=== PATIENT | male | born 1970 | race Caucasian/White ===

== ENCOUNTER 2022-03-19 21:25 | Inpatient (IN) | payer MEDICARE, MEDICAID ==
[~2022-03-19] VITALS: Ht 162.6 cm; Wt 57.6 kg
[~2022-03-19 21:25] MED LIST: ALBU18HF2 IH; FERR325T6 PO; MULT-1116 MT; PANT40TA51 MT
[2022-03-19] MEDS ORDERED: IPRATROPIUM BROMIDE (0.02%) 0.5MG/2.5ML NEB HHN STA (23:40)
[2022-03-19] MEDS ORDERED: ONDANSETRON HCL 4MG/2ML INJ IV STA (23:40)
[2022-03-19] MEDS ORDERED: MORPHINE SULFATE 4 MG/ML CPJ (NOT FOR IM USE) IV STA (23:40)
[2022-03-19] MEDS ORDERED: ALBUTEROL (0.083%) 2.5MG/3ML NEB HHN STA (23:40)
[2022-03-19] MEDS ORDERED: PIPERACILLIN/TAZ 3.375G PREMIX 50 ML IV ONE (23:45)
[2022-03-19] MEDS ORDERED: VANCOMYCIN 1G PREMIX 200 ML IV ONE (23:45)
[2022-03-19] MEDS ORDERED: SODIUM CHLORIDE 0.9% 1000ML BAG (SEPSIS BOLUS) IV ONE (23:45)
[2022-03-20] VITALS (15 sets, daily range): BP systolic 77–150; BP diastolic 39–91
[2022-03-20 00:38] LABS: BG BASE EXCESS 2.8 mmol/L (-2.0-2.0); BG CARBOXYHEMOGLOBIN 1.1 % (0.5-1.5); BG DEOXYHEMOGLOBIN 6.4 % (0.0-5.0); BG FRACTION INSPIRED OXYGEN 44; BG HCO3 ACT 27.9 mmol/L (22.0-26.0); BG METHEMOGLOBIN 0.1 % (0.0-1.5); BG OXYGEN SATURATION 93.5 % (92.0-98.5); BG OXYHEMOGLOBIN 92.4 % (94.0-97.0); BG PCO2 45.1 mmHg (35.0-45.0); BG PH 7.409 (7.350-7.450); BG PO2 72.3 mmHg (75.0-100.0); BG SAMPLE SITE LEFT BRACHIAL; BG TOTAL HEMOGLOBIN 9.5 g/dL (12.0-18.0); BG VENT MODE NASAL CANNULA
[2022-03-20 01:51] LABS: HEMATOCRIT. 27.4 % (42.0-52.0); HEMOGLOBIN. 8.7 g/dL (14.0-18.0); MEAN CORPUSCULAR HEMOGLOBIN 23.7 pg (28.0-32.0); MEAN CORPUSCULAR VOLUME 74.5 fL (80.0-94.0); MEAN PLATELET VOLUME 7.6 fl (7.4-10.4); PLATELET 586 x1000/uL (130-400); RED BLOOD CELL COUNT 3.68 mill/uL (4.7-6.1); RED CELL DISTRIBUTION WIDTH 24.5 % (11.6-14.6)
[2022-03-20 02:04] LABS: CHLORIDE 103 mEq/L (98-107)
[2022-03-20] MEDS ORDERED: NOREPINEPHRINE 8MG/250ML PMX 250 ML IV STA (02:39)
[2022-03-20] MEDS ORDERED: VANCOMYCIN 1G PREMIX 200 ML IV NR (03:00)
[2022-03-20] MEDS ORDERED: SODIUM CHLORIDE 0.9% 1000ML BAG (SEPSIS BOLUS) IV NR (03:00)
[2022-03-20] MEDS ORDERED: IPRATROPIUM BROMIDE (0.02%) 0.5MG/2.5ML NEB HHN NR (03:00)
[2022-03-20] MEDS ORDERED: ONDANSETRON HCL 4MG/2ML INJ IV NR (03:00)
[2022-03-20] MEDS ORDERED: PIPERACILLIN/TAZ 3.375G PREMIX 50 ML IV NR (03:00)
[2022-03-20] MEDS ORDERED: ALBUTEROL (0.083%) 2.5MG/3ML NEB HHN NR (03:00)
[2022-03-20] MEDS ORDERED: MORPHINE SULFATE 4 MG/ML CPJ (NOT FOR IM USE) IV NR (03:00)
[2022-03-20] MEDS ORDERED: NOREPINEPHRINE 8 MG in DEXTROSE 5% WATER 250 ML IV NR (03:00)
[2022-03-20 03:18] LABS: PLATELET ESTIMATE INCREASED
[2022-03-20] MEDS ORDERED: IOHEXOL-350 100 ML BOTTLE ONE (07:11)
[2022-03-20] MEDS ORDERED: IPRATROPIUM BROMIDE (0.02%) 0.5MG/2.5ML NEB HHN PRN (07:45)
[2022-03-20] MEDS ORDERED: IPRATROPIUM BROMIDE (0.02%) 0.5MG/2.5ML NEB HHN SCH (07:45)
[2022-03-20] MEDS ORDERED: POTASSIUM CHLORIDE 20MEQ TABLET SR PO NR (08:00)
[2022-03-20] MEDS ORDERED: CLONIDINE 0.1MG TABLET PO PRN (09:30)
[2022-03-20] MEDS ORDERED: ACETAMINOPHEN 325MG TABLET PO PRN (09:30)
[2022-03-20] MEDS: ENOXAPARIN 40MG/0.4ML SYR SUBCUT SCH ×2 (09:30→10:51)
[2022-03-20] MEDS ORDERED: IPRATROPIUM/ALBUTEROL 0.5-3(2.5)MG/3ML NEB HHN SCH (09:30)
[2022-03-20] MEDS ORDERED: METHYLPREDNISOLONE SOD SUCC 125 MG/2 ML VIAL IV SCH (09:30)
[2022-03-20] MEDS: SODIUM CHLORIDE 0.9% 1,000 ML IV SCH ×2 (10:51→20:44)
[2022-03-20] MEDS: MIDODRINE HCL 5MG TABLET PO SCH ×3 (10:51→18:40)
[2022-03-20] MEDS ORDERED: NOREPINEPHRINE 8 MG in DEXT 5% WATER 242 ML IV PRN (11:00)
[2022-03-20] MEDS ORDERED: PHENYLEPHRINE 50 MG in DEXTROSE 5% WATER 250 ML IV PRN (11:30)
[2022-03-20] MEDS: PIPERACILLIN/TAZOBACTAM 3.375 G in DEXTROSE 5% WATER 50 ML IV SCH ×2 (15:15→22:48)
[2022-03-20 16:08] LABS: CLARITY URINE CLEAR (CLEAR); COLOR URINE YELLOW (YELLOW); KETONES URINE NEGATIVE (NEGATIVE); LEUKOCYTE ESTERASE URINE TRACE (NEGATIVE); NITRITE URINE POSITIVE (NEGATIVE); OCCULT BLOOD URINE TRACE (NEGATIVE); PH URINE 6.5 (4.5-8.0); PROTEIN URINE 1+ (NEGATIVE); SPECIFIC GRAVITY URINE 1.043 (1.005-1.030); UROBILINOGEN URINE 0.2 E.U./dL (0.2-1.0)
[2022-03-20 16:13] LABS: PHOSPHORUS 4.4 mg/dL (2.5-4.9)
[2022-03-20] MEDS: ACETYLCYSTEINE 200MG/ML 20% VIAL 4ML INH SCH (16:14)
[2022-03-20 16:18] LABS: CREATINE KINASE MB FRACTION 1.1 ng/mL (0.5-3.6)
[2022-03-20 16:23] LABS: *AMPHETAMINES SCREEN URINE PRESUMTIVE POSITIVE (NEGATIVE); *BARBITURATES SCREEN URINE NEGATIVE (NEGATIVE); *BENZODIAZEPINES SCREEN URINE NEGATIVE (NEGATIVE); *COCAINE SCREEN URINE NEGATIVE (NEGATIVE); CANNABINOID URINE SCREEN NEGATIVE (NEGATIVE); METHADONE URINE SCREEN NEGATIVE (NEGATIVE); OPIATES URINE SCREEN PRESUMTIVE POSITIVE (NEGATIVE); PHENCYCLIDINE URINE SCREEN NEGATIVE (NEGATIVE)
[2022-03-20 16:29] LABS: FERRITIN 154 ng/mL (22-322)
[2022-03-20 16:41] LABS: VITAMIN B12 SERUM 498 pg/mL (211-911)
[2022-03-20 16:50] LABS: FOLIC ACID (FOLATE) SERUM > 20.00 ng/mL (>5.38)
[2022-03-20] MEDS ORDERED: DIGOXIN 500MCG/2ML AMP IV NR (17:00)
[2022-03-20] MEDS: METHYLPREDNISOLONE SOD SUCC 40 MG/ML VIAL IV SCH (18:40)
[2022-03-20] MEDS: ACETAMINOPHEN 325MG TABLET PO PRN (21:13)
[2022-03-20] MEDS ORDERED: LEVO750T68 MT (21:37)
[2022-03-20] MEDS ORDERED: FLUT100B INH (21:37)
[2022-03-20] MEDS ORDERED: *PATIENT'S OWN MEDICATION STORAGE XX SCH (23:45)
[2022-03-21] VITALS (88 sets, daily range): BP systolic 75–179; BP diastolic 40–98
[2022-03-21 00:12] LABS: CREATINE KINASE 51 IU/L (39-308); CREATINE KINASE MB FRACTION < 1.0 ng/mL (0.5-3.6)
[2022-03-21] MEDS ORDERED: KETOROLAC 15MG/ML VIAL IV NR (02:30)
[2022-03-21] MEDS: METHYLPREDNISOLONE SOD SUCC 40 MG/ML VIAL IV SCH ×3 (02:52→17:30)
[2022-03-21] MEDS: SODIUM CHLORIDE 0.9% 1,000 ML IV SCH (05:44)
[2022-03-21] MEDS: PIPERACILLIN/TAZOBACTAM 3.375 G in DEXTROSE 5% WATER 50 ML IV SCH ×3 (05:45→21:23)
[2022-03-21 05:48] LABS: HEMATOCRIT. 27.5 % (42.0-52.0); HEMOGLOBIN. 8.3 g/dL (14.0-18.0); MEAN CORPUSCULAR HEMOGLOBIN 23.3 pg (28.0-32.0); MEAN CORPUSCULAR VOLUME 77.1 fL (80.0-94.0); MEAN PLATELET VOLUME 7.9 fl (7.4-10.4); PLATELET 595 x1000/uL (130-400); RED BLOOD CELL COUNT 3.57 mill/uL (4.7-6.1); RED CELL DISTRIBUTION WIDTH 23.6 % (11.6-14.6)
[2022-03-21 06:03] LABS: CHLORIDE 109 mEq/L (98-107)
[2022-03-21 06:26] LABS: HDL CHOLESTEROL 45 mg/dL (40-59); LDL CHOLESTEROL 34 mg/dL (5-100); T4 FREE 1.06 ng/dL (0.76-1.46)
[2022-03-21 06:29] LABS: HEPATITIS B SURFACE ANTIGEN NEGATIVE
[2022-03-21] MEDS: ALBUTEROL (0.083%) 2.5MG/3ML NEB HHN SCH ×4 (08:40→20:31)
[2022-03-21] MEDS: BUDESONIDE 0.5MG/2ML NEB HHN SCH ×2 (08:40→20:31)
[2022-03-21] MEDS: ACETYLCYSTEINE 200MG/ML 20% VIAL 4ML INH SCH ×2 (08:41→20:25)
[2022-03-21] MEDS ORDERED: INFLUENZA VACCINE 05/PF 0.5 ML SYRINGE IM ONE (09:00)
[2022-03-21] MEDS: MIDODRINE HCL 5MG TABLET PO SCH ×3 (09:08→17:30)
[2022-03-21] MEDS: ENOXAPARIN 40MG/0.4ML SYR SUBCUT SCH (09:09)
[2022-03-21 10:38] LABS: PLATELET ESTIMATE INCREASED
[2022-03-21] MEDS ORDERED: IPRATROPIUM BROMIDE (0.02%) 0.5MG/2.5ML NEB HHN PRN (12:15)
[2022-03-21] MEDS: KETOROLAC 15MG/ML VIAL IV PRN ×2 (12:27→20:01)
[2022-03-21] MEDS: VANCOMYCIN 1G PREMIX 200 ML IV SCH (17:30)
[2022-03-21] MEDS: IPRATROPIUM BROMIDE (0.02%) 0.5MG/2.5ML NEB HHN SCH (20:31)
[2022-03-21] MEDS: FAMOTIDINE 20MG TABLET PO SCH (20:48)
[2022-03-21] MEDS: ONDANSETRON HCL 4MG/2ML INJ IV PRN (20:48)
[2022-03-21] MEDS ORDERED: GUAIFENESIN 200MG/10ML SUGAR FREE UDC PO NR (21:45)
[2022-03-21] MEDS ORDERED: MAGNESIUM/ALUMINUM HYDROXIDE/SIMETHICONE 30ML UDC PO NR (21:45)
[2022-03-22] VITALS (37 sets, daily range): BP systolic 91–178; BP diastolic 47–99
[2022-03-22] MEDS: IPRATROPIUM BROMIDE (0.02%) 0.5MG/2.5ML NEB HHN SCH ×6 (00:41→20:34)
[2022-03-22] MEDS: ALBUTEROL (0.083%) 2.5MG/3ML NEB HHN SCH ×6 (00:41→20:34)
[2022-03-22] MEDS: ACETYLCYSTEINE 200MG/ML 20% VIAL 4ML INH SCH ×3 (00:45→16:17)
[2022-03-22] MEDS: METHYLPREDNISOLONE SOD SUCC 40 MG/ML VIAL IV SCH ×3 (01:59→21:28)
[2022-03-22] MEDS: KETOROLAC 15MG/ML VIAL IV PRN ×4 (02:47→23:03)
[2022-03-22] MEDS: ACETAMINOPHEN 325MG TABLET PO PRN ×2 (04:37→20:22)
[2022-03-22] MEDS: ONDANSETRON HCL 4MG/2ML INJ IV PRN ×2 (05:25→20:22)
[2022-03-22 05:28] LABS: CHLORIDE 112 mEq/L (98-107)
[2022-03-22] MEDS: VANCOMYCIN 1G PREMIX 200 ML IV SCH ×2 (05:28→18:42)
[2022-03-22] MEDS: PIPERACILLIN/TAZOBACTAM 3.375 G in DEXTROSE 5% WATER 50 ML IV SCH ×3 (05:28→21:27)
[2022-03-22 05:33] LABS: PHOSPHORUS 2.9 mg/dL (2.5-4.9)
[2022-03-22 05:37] LABS: HEMATOCRIT. 27.9 % (42.0-52.0); HEMOGLOBIN. 8.1 g/dL (14.0-18.0); MEAN CORPUSCULAR HEMOGLOBIN 22.9 pg (28.0-32.0); MEAN CORPUSCULAR VOLUME 78.4 fL (80.0-94.0); PLATELET 589 x1000/uL (130-400); RED BLOOD CELL COUNT 3.55 mill/uL (4.7-6.1); RED CELL DISTRIBUTION WIDTH 23.4 % (11.6-14.6)
[2022-03-22] MEDS: BUDESONIDE 0.5MG/2ML NEB HHN SCH ×2 (07:49→20:34)
[2022-03-22 07:53] LABS: PLATELET ESTIMATE INCREASED
[2022-03-22] MEDS: MIDODRINE HCL 5MG TABLET PO SCH ×3 (08:27→17:00)
[2022-03-22] MEDS: ENOXAPARIN 30MG/0.3ML SYR SUBCUT SCH (08:27)
[2022-03-22] MEDS: FAMOTIDINE 20MG TABLET PO SCH ×3 (08:28→21:27)
[2022-03-22] MEDS: TRAMADOL 50MG TABLET PO NR ×3 (21:27→22:30)
[2022-03-23] VITALS (32 sets, daily range): BP systolic 93–177; BP diastolic 47–99
[2022-03-23] MEDS: ACETYLCYSTEINE 200MG/ML 20% VIAL 4ML INH SCH ×4 (00:37→21:08)
[2022-03-23] MEDS: IPRATROPIUM BROMIDE (0.02%) 0.5MG/2.5ML NEB HHN SCH ×6 (00:37→21:08)
[2022-03-23] MEDS: ALBUTEROL (0.083%) 2.5MG/3ML NEB HHN SCH ×6 (00:37→21:08)
[2022-03-23] MEDS: ACETAMINOPHEN 325MG TABLET PO PRN (04:13)
[2022-03-23] MEDS: ONDANSETRON HCL 4MG/2ML INJ IV PRN ×2 (04:13→20:44)
[2022-03-23] MEDS: VANCOMYCIN 1G PREMIX 200 ML IV SCH (05:11)
[2022-03-23] MEDS: PIPERACILLIN/TAZOBACTAM 3.375 G in DEXTROSE 5% WATER 50 ML IV SCH ×3 (05:11→21:56)
[2022-03-23] MEDS: BUDESONIDE 0.5MG/2ML NEB HHN SCH (08:13)
[2022-03-23] MEDS ORDERED: MIDO5TAB4 PO ×2 (08:20→21:16)
[2022-03-23 08:40] LABS: HEMATOCRIT. 24.8 % (42.0-52.0); HEMOGLOBIN. 7.4 g/dL (14.0-18.0); MEAN CORPUSCULAR HEMOGLOBIN 23.2 pg (28.0-32.0); MEAN CORPUSCULAR VOLUME 77.6 fL (80.0-94.0); MEAN PLATELET VOLUME 8.1 fl (7.4-10.4); PLATELET 584 x1000/uL (130-400); RED CELL DISTRIBUTION WIDTH 23.2 % (11.6-14.6)
[2022-03-23 08:49] LABS: CHLORIDE 111 mEq/L (98-107)
[2022-03-23 08:57] LABS: PHOSPHORUS 2.3 mg/dL (2.5-4.9)
[2022-03-23] MEDS: ENOXAPARIN 30MG/0.3ML SYR SUBCUT SCH (09:07)
[2022-03-23] MEDS: METHYLPREDNISOLONE SOD SUCC 40 MG/ML VIAL IV SCH (09:07)
[2022-03-23] MEDS: FAMOTIDINE 20MG TABLET PO SCH ×2 (09:07→20:23)
[2022-03-23] MEDS: MIDODRINE HCL 5MG TABLET PO SCH ×3 (09:08→16:46)
[2022-03-23 09:27] LABS: PLATELET ESTIMATE INCREASED
[2022-03-23] MEDS: KETOROLAC 15MG/ML VIAL IV PRN ×3 (09:47→16:47)
[2022-03-23] MEDS ORDERED: NALOXONE HCL 0.4MG/ML VIAL IV PRN (11:30)
[2022-03-23] MEDS: HYDROCODONE/ACETAMINOPHEN 5/325MG TABLET PO PRN ×2 (11:36→20:41)
[2022-03-24 00:29] VITALS: BP 106/77
[2022-03-24] MEDS: ALBUTEROL (0.083%) 2.5MG/3ML NEB HHN SCH ×5 (04:42→21:15)
[2022-03-24] MEDS: IPRATROPIUM BROMIDE (0.02%) 0.5MG/2.5ML NEB HHN SCH ×5 (04:42→21:15)
[2022-03-24] MEDS: VANCOMYCIN 750MG PREMIX 150 ML IV SCH (05:22)
[2022-03-24] MEDS: PIPERACILLIN/TAZOBACTAM 3.375 G in DEXTROSE 5% WATER 50 ML IV SCH ×3 (06:03→21:42)
[2022-03-24 08:00] VITALS: BP 145/78
[2022-03-24] MEDS: ACETYLCYSTEINE 200MG/ML 20% VIAL 4ML INH SCH ×2 (08:04→13:17)
[2022-03-24] MEDS: BUDESONIDE 0.5MG/2ML NEB HHN SCH (08:05)
[2022-03-24] MEDS ORDERED: METHYLPREDNISOLONE SOD SUCC 40 MG/ML VIAL IV SCH (09:00)
[2022-03-24] MEDS: ONDANSETRON HCL 4MG/2ML INJ IV PRN (09:15)
[2022-03-24] MEDS: HYDROCODONE/ACETAMINOPHEN 5/325MG TABLET PO PRN ×2 (09:16→16:44)
[2022-03-24] MEDS: MIDODRINE HCL 5MG TABLET PO SCH ×4 (09:16→16:44)
[2022-03-24] MEDS: FAMOTIDINE 20MG TABLET PO SCH ×2 (09:16→21:42)
[2022-03-24] MEDS: ENOXAPARIN 30MG/0.3ML SYR SUBCUT SCH (09:17)
[2022-03-24 12:00] VITALS: BP 98/64
[2022-03-24] MEDS ORDERED: MAGNESIUM/ALUMINUM HYDROXIDE/SIMETHICONE 30ML UDC PO NR (13:00)
[2022-03-24 16:00] VITALS: BP 86/62
[2022-03-24 20:00] VITALS: BP 107/65
[2022-03-25] VITALS (13 sets, daily range): BP systolic 84–126; BP diastolic 51–77
[2022-03-25] MEDS: VANCOMYCIN 750MG PREMIX 150 ML IV SCH ×2 (00:24→18:45)
[2022-03-25] MEDS: IPRATROPIUM BROMIDE (0.02%) 0.5MG/2.5ML NEB HHN SCH ×4 (00:25→20:17)
[2022-03-25] MEDS: ALBUTEROL (0.083%) 2.5MG/3ML NEB HHN SCH ×4 (00:25→20:17)
[2022-03-25] MEDS: ACETYLCYSTEINE 200MG/ML 20% VIAL 4ML INH SCH (00:25)
[2022-03-25] MEDS: HYDROCODONE/ACETAMINOPHEN 5/325MG TABLET PO PRN ×2 (02:07→18:50)
[2022-03-25] MEDS: PIPERACILLIN/TAZOBACTAM 3.375 G in DEXTROSE 5% WATER 50 ML IV SCH (05:50)
[2022-03-25] MEDS: MIDODRINE HCL 5MG TABLET PO SCH ×3 (07:11→18:26)
[2022-03-25 07:15] LABS: CHLORIDE 104 mEq/L (98-107)
[2022-03-25 07:27] LABS: PHOSPHORUS 1.8 mg/dL (2.5-4.9)
[2022-03-25] MEDS ORDERED: POTASSIUM-SODIUM PHOSPHATE POWDER PACKET PO NR (08:15)
[2022-03-25] MEDS ORDERED: MAGNESIUM 2 G PREMIX 50 ML IV NR (09:30)
[2022-03-25 09:46] LABS: MEAN CORPUSCULAR HEMOGLOBIN 24.1 pg (28.0-32.0); MEAN CORPUSCULAR VOLUME 74.9 fL (80.0-94.0); MEAN PLATELET VOLUME 8.1 fl (7.4-10.4); PLATELET 603 x1000/uL (130-400); RED BLOOD CELL COUNT 2.29 mill/uL (4.7-6.1); RED CELL DISTRIBUTION WIDTH 24.1 % (11.6-14.6)
[2022-03-25 09:49] LABS: HEMOGLOBIN. 5.5 g/dL (14.0-18.0)
[2022-03-25 09:50] LABS: HEMATOCRIT. 17.2 % (42.0-52.0)
[2022-03-25 10:20] LABS: PLATELET ESTIMATE INCREASED
[2022-03-25] MEDS: FAMOTIDINE 20MG TABLET PO SCH (11:39)
[2022-03-25] MEDS ORDERED: SODIUM CHLORIDE 0.9% 500 ML IV SCH (12:00)
[2022-03-25] MEDS: SODIUM CHLORIDE 0.9% 1,000 ML IV SCH ×2 (12:00→21:52)
[2022-03-25] MEDS ORDERED: LIDOCAINE HCL 1% 10 MG/ML 10ML VIAL ONE (12:34)
[2022-03-25 12:48] LABS: TOTAL IRON BINDING CAPACITY 283 ug/dL (250-450)
[2022-03-25 13:20] LABS: VITAMIN B12 SERUM 277 pg/mL (211-911)
[2022-03-25 13:40] LABS: FERRITIN 569 ng/mL (22-322)
[2022-03-25] MEDS: PANTOPRAZOLE SODIUM 40 MG/VIAL IV SCH (18:46)
[2022-03-25] MEDS: SUCRALFATE 1 G/10 ML UDC PO SCH ×2 (18:49→21:52)
[2022-03-25 21:25] LABS: HEMATOCRIT 24.5 % (42.0-52.0); HEMOGLOBIN 7.8 g/dL (14.0-18.0); MEAN CORPUSCULAR HEMOGLOBIN 25.2 pg (28.0-32.0); MEAN CORPUSCULAR VOLUME 79.5 fL (80.0-94.0); PLATELET 455 x1000/uL (130-400); RED BLOOD CELL COUNT 3.09 mill/uL (4.7-6.1)
[2022-03-25 23:55] LABS: PROTHROMBIN TIME 11.1 sec (9.6-11.0)
[2022-03-26] VITALS (31 sets, daily range): BP systolic 77–138; BP diastolic 34–81
[2022-03-26] MEDS: HYDROCODONE/ACETAMINOPHEN 5/325MG TABLET PO PRN ×4 (00:20→18:11)
[2022-03-26] MEDS: ACETYLCYSTEINE 200MG/ML 20% VIAL 4ML INH SCH (01:00)
[2022-03-26] MEDS: ALBUTEROL (0.083%) 2.5MG/3ML NEB HHN SCH ×5 (01:00→20:58)
[2022-03-26] MEDS: IPRATROPIUM BROMIDE (0.02%) 0.5MG/2.5ML NEB HHN SCH ×4 (01:00→07:57)
[2022-03-26] MEDS: SUCRALFATE 1 G/10 ML UDC PO SCH ×4 (06:14→21:01)
[2022-03-26 08:46] LABS: BASOPHILS % 0.1 % (0.0-2.0); EOSINOPHILS % 2.8 % (0.0-5.0); HEMATOCRIT. 22.4 % (42.0-52.0); HEMOGLOBIN. 7.4 g/dL (14.0-18.0); LYMPHOCYTES % 16.5 % (20.0-50.0); MEAN CORPUSCULAR HEMOGLOBIN 25.9 pg (28.0-32.0); MEAN CORPUSCULAR VOLUME 78.2 fL (80.0-94.0); MEAN PLATELET VOLUME 8.4 fl (7.4-10.4); NEUTROPHILS % 74.6 % (40.0-76.0); PLATELET 493 x1000/uL (130-400); RED BLOOD CELL COUNT 2.87 mill/uL (4.7-6.1); RED CELL DISTRIBUTION WIDTH 20.3 % (11.6-14.6)
[2022-03-26 09:06] LABS: CHLORIDE 105 mEq/L (98-107)
[2022-03-26 09:14] LABS: PHOSPHORUS 2.7 mg/dL (2.5-4.9)
[2022-03-26 09:41] LABS: PLATELET ESTIMATE INCREASED
[2022-03-26] MEDS: MIDODRINE HCL 5MG TABLET PO SCH ×3 (10:25→18:10)
[2022-03-26] MEDS: PANTOPRAZOLE SODIUM 40 MG/VIAL IV SCH ×2 (10:26→18:10)
[2022-03-26] MEDS: SODIUM CHLORIDE 0.9% 1,000 ML IV SCH ×2 (10:32→21:00)
[2022-03-26] MEDS ORDERED: MORPHINE SULFATE 2 MG/ML CPJ (NOT FOR IM USE) IV SCH (11:45)
[2022-03-26] MEDS: VANCOMYCIN 750MG PREMIX 150 ML IV SCH (12:00)
[2022-03-26 14:53] LABS: BG BASE EXCESS 6.6 mmol/L (-2.0-2.0); BG CARBOXYHEMOGLOBIN 0.9 % (0.5-1.5); BG DEOXYHEMOGLOBIN 4.3 % (0.0-5.0); BG METHEMOGLOBIN 0.5 % (0.0-1.5); BG OXYGEN SATURATION 95.6 % (92.0-98.5); BG OXYHEMOGLOBIN 94.3 % (94.0-97.0); BG PCO2 52.1 mmHg (35.0-45.0); BG PH 7.406 (7.350-7.450); BG PO2 84.8 mmHg (75.0-100.0); BG SAMPLE SITE RIGHT RADIAL; BG TOTAL HEMOGLOBIN 6.8 g/dL (12.0-18.0); BG VENT MODE NASAL CANNULA
[2022-03-26] MEDS ORDERED: NOREPINEPHRINE 32 MG in DEXT 5% WATER 218 ML IV PRN (17:30)
[2022-03-26 23:23] LABS: HEMATOCRIT 26.2 % (42.0-52.0); HEMOGLOBIN 8.6 g/dL (14.0-18.0)
[2022-03-27] VITALS (90 sets, daily range): BP systolic 76–154; BP diastolic 41–88
[2022-03-27] MEDS: ALBUTEROL (0.083%) 2.5MG/3ML NEB HHN SCH ×4 (00:15→12:17)
[2022-03-27] MEDS: ACETAMINOPHEN 325MG TABLET PO PRN ×2 (02:37→11:20)
[2022-03-27] MEDS: SODIUM CHLORIDE 0.9% 1,000 ML IV SCH ×2 (03:43→15:50)
[2022-03-27 04:33] LABS: HEMATOCRIT. 23.9 % (42.0-52.0); HEMOGLOBIN. 7.8 g/dL (14.0-18.0); MEAN CORPUSCULAR HEMOGLOBIN 26.3 pg (28.0-32.0); MEAN CORPUSCULAR VOLUME 80.4 fL (80.0-94.0); MEAN PLATELET VOLUME 7.6 fl (7.4-10.4); PLATELET 381 x1000/uL (130-400); RED BLOOD CELL COUNT 2.97 mill/uL (4.7-6.1); RED CELL DISTRIBUTION WIDTH 20.4 % (11.6-14.6)
[2022-03-27 04:46] LABS: CHLORIDE 106 mEq/L (98-107)
[2022-03-27 04:56] LABS: PHOSPHORUS 4.1 mg/dL (2.5-4.9)
[2022-03-27 05:32] LABS: INR 1.1; PROTHROMBIN TIME 11.3 sec (9.6-11.0)
[2022-03-27 07:23] LABS: PLATELET ESTIMATE NORMAL
[2022-03-27] MEDS: SUCRALFATE 1 G/10 ML UDC PO SCH ×5 (08:15→20:29)
[2022-03-27] MEDS: PANTOPRAZOLE SODIUM 40 MG/VIAL IV SCH ×2 (08:16→18:35)
[2022-03-27] MEDS: MIDODRINE HCL 5MG TABLET PO SCH ×3 (08:16→18:35)
[2022-03-27] MEDS ORDERED: MAGNESIUM 2 G PREMIX 50 ML IV SCH (11:00)
[2022-03-27 12:59] LABS: HEMATOCRIT 22.8 % (42.0-52.0); HEMOGLOBIN 7.5 g/dL (14.0-18.0)
[2022-03-27] MEDS: HYDROCODONE/ACETAMINOPHEN 7.5/325MG TABLET PO PRN (15:51)
[2022-03-28] VITALS (60 sets, daily range): BP systolic 81–146; BP diastolic 41–89
[2022-03-28 00:02] LABS: HEMOGLOBIN 7.9 g/dL (14.0-18.0)
[2022-03-28] MEDS: HYDROCODONE/ACETAMINOPHEN 7.5/325MG TABLET PO PRN ×2 (00:11→01:31)
[2022-03-28] MEDS: SODIUM CHLORIDE 0.9% 1,000 ML IV SCH ×3 (00:15→19:22)
[2022-03-28 03:55] LABS: CHLORIDE 108 mEq/L (98-107)
[2022-03-28 03:57] LABS: PROTHROMBIN TIME 10.9 sec (9.6-11.0)
[2022-03-28 04:03] LABS: BASOPHILS % 0.2 % (0.0-2.0); HEMATOCRIT. 21.2 % (42.0-52.0); LYMPHOCYTES % 13.2 % (20.0-50.0); MEAN CORPUSCULAR HEMOGLOBIN 26.5 pg (28.0-32.0); MEAN CORPUSCULAR VOLUME 81.8 fL (80.0-94.0); MONOCYTES % 5.8 % (2.0-8.0); NEUTROPHILS % 68.8 % (40.0-76.0); PLATELET 344 x1000/uL (130-400); RED BLOOD CELL COUNT 2.59 mill/uL (4.7-6.1); RED CELL DISTRIBUTION WIDTH 21.4 % (11.6-14.6)
[2022-03-28 04:04] LABS: PHOSPHORUS 3.8 mg/dL (2.5-4.9)
[2022-03-28 04:08] LABS: HEMOGLOBIN. 6.9 g/dL (14.0-18.0)
[2022-03-28] MEDS: SUCRALFATE 1 G/10 ML UDC PO SCH ×4 (06:30→20:45)
[2022-03-28] MEDS: ACETAMINOPHEN 325MG TABLET PO PRN ×2 (06:30→17:41)
[2022-03-28] MEDS: MIDODRINE HCL 5MG TABLET PO SCH ×3 (09:00→17:42)
[2022-03-28] MEDS: PANTOPRAZOLE SODIUM 40 MG/VIAL IV SCH ×2 (10:07→17:40)
[2022-03-28] MEDS ORDERED: PROPOFOL 200MG/20ML VIAL IV ONE (11:15)
[2022-03-28] MEDS ORDERED: PHENYLEPHRINE HCL 10 MG/ML 1ML (IV VIAL) IV ONE (11:18)
[2022-03-28] MEDS ORDERED: ONDANSETRON HCL 4MG/2ML INJ ONE (11:22)
[2022-03-28] MEDS ORDERED: DEXAMETHASONE 4MG/ML 1ML VIAL ONE (11:22)
[2022-03-28] MEDS ORDERED: MIDAZOLAM HCL 2 MG/2 ML VIAL ONE (11:22)
[2022-03-28] MEDS: FOLIC ACID 1MG TABLET PO SCH (12:52)
[2022-03-28] MEDS: ASCORBIC ACID 500 MG TABLET PO SCH (12:52)
[2022-03-28] MEDS: CYANOCOBALAMIN 1000MCG/ML VIAL IM SCH (17:40)
[2022-03-28] MEDS: FERROUS SULFATE 325MG TABLET PO SCH (17:41)
[2022-03-28] MEDS ORDERED: IPRATROPIUM/ALBUTEROL 0.5-3(2.5)MG/3ML NEB HHN PRN (18:45)
[2022-03-28 20:08] LABS: HEMATOCRIT 28.8 % (42.0-52.0); HEMOGLOBIN 9.2 g/dL (14.0-18.0)
[2022-03-28] MEDS: IPRATROPIUM/ALBUTEROL 0.5-3(2.5)MG/3ML NEB HHN SCH (21:12)
[2022-03-29] VITALS (22 sets, daily range): BP systolic 90–151; BP diastolic 61–98
[2022-03-29] MEDS: IPRATROPIUM/ALBUTEROL 0.5-3(2.5)MG/3ML NEB HHN SCH ×3 (00:25→08:41)
[2022-03-29] MEDS: SUCRALFATE 1 G/10 ML UDC PO SCH ×4 (05:12→22:04)
[2022-03-29] MEDS: ACETAMINOPHEN 325MG TABLET PO PRN (05:12)
[2022-03-29 05:23] LABS: CHLORIDE 108 mEq/L (98-107)
[2022-03-29 05:25] LABS: BASOPHILS % 0.3 % (0.0-2.0); HEMATOCRIT. 27.9 % (42.0-52.0); LYMPHOCYTES % 12.2 % (20.0-50.0); MEAN CORPUSCULAR HEMOGLOBIN 27.1 pg (28.0-32.0); MEAN CORPUSCULAR VOLUME 83.7 fL (80.0-94.0); MEAN PLATELET VOLUME 8.3 fl (7.4-10.4); MONOCYTES % 7.2 % (2.0-8.0); NEUTROPHILS % 77.3 % (40.0-76.0); PLATELET 399 x1000/uL (130-400); RED BLOOD CELL COUNT 3.33 mill/uL (4.7-6.1); RED CELL DISTRIBUTION WIDTH 19.8 % (11.6-14.6)
[2022-03-29] MEDS: SODIUM CHLORIDE 0.9% 1,000 ML IV SCH ×2 (05:56→16:19)
[2022-03-29] MEDS: FERROUS SULFATE 325MG TABLET PO SCH ×2 (09:57→18:25)
[2022-03-29] MEDS: FOLIC ACID 1MG TABLET PO SCH (09:57)
[2022-03-29] MEDS: MIDODRINE HCL 5MG TABLET PO SCH ×3 (09:57→18:26)
[2022-03-29] MEDS: ASCORBIC ACID 500 MG TABLET PO SCH (09:58)
[2022-03-29] MEDS: PANTOPRAZOLE SODIUM 40 MG/VIAL IV SCH ×2 (09:59→18:25)
[2022-03-29] MEDS: CYANOCOBALAMIN 1000MCG/ML VIAL IM SCH (09:59)
[2022-03-29] MEDS ORDERED: IPRATROPIUM BROMIDE (0.02%) 0.5MG/2.5ML NEB HHN PRN (14:45)
[2022-03-29] MEDS ORDERED: ALBUTEROL (0.083%) 2.5MG/3ML NEB HHN PRN (14:45)
[2022-03-29] MEDS ORDERED: ASCO500T20 PO (15:53)
[2022-03-29] MEDS ORDERED: SUCR1ORA15 PO (15:53)
[2022-03-29] MEDS: HYDROCODONE/ACETAMINOPHEN 7.5/325MG TABLET PO PRN (18:25)
[2022-03-29] MEDS: ALBUTEROL (0.083%) 2.5MG/3ML NEB HHN SCH ×2 (18:48→21:09)
[2022-03-29] MEDS: IPRATROPIUM BROMIDE (0.02%) 0.5MG/2.5ML NEB HHN SCH ×2 (18:48→21:08)
[2022-03-30] VITALS: BP 151/84
[2022-03-30] MEDS: SODIUM CHLORIDE 0.9% 1,000 ML IV SCH ×3 (02:00→22:50)
[2022-03-30 04:00] VITALS: BP 151/87
[2022-03-30] MEDS: IPRATROPIUM BROMIDE (0.02%) 0.5MG/2.5ML NEB HHN SCH ×4 (04:06→22:13)
[2022-03-30] MEDS: ALBUTEROL (0.083%) 2.5MG/3ML NEB HHN SCH ×4 (04:07→22:13)
[2022-03-30] MEDS: ACETAMINOPHEN 325MG TABLET PO PRN ×2 (04:12→22:50)
[2022-03-30] MEDS: SUCRALFATE 1 G/10 ML UDC PO SCH ×4 (06:16→22:45)
[2022-03-30 07:09] LABS: BASOPHILS % 0.4 % (0.0-2.0); EOSINOPHILS % 10.7 % (0.0-5.0); HEMATOCRIT. 24.6 % (42.0-52.0); HEMOGLOBIN. 7.8 g/dL (14.0-18.0); LYMPHOCYTES % 13.9 % (20.0-50.0); MEAN CORPUSCULAR HEMOGLOBIN 26.4 pg (28.0-32.0); MEAN PLATELET VOLUME 8.1 fl (7.4-10.4); MONOCYTES % 6.8 % (2.0-8.0); NEUTROPHILS % 68.2 % (40.0-76.0); PLATELET 320 x1000/uL (130-400); RED BLOOD CELL COUNT 2.97 mill/uL (4.7-6.1); RED CELL DISTRIBUTION WIDTH 20.2 % (11.6-14.6)
[2022-03-30 07:13] LABS: PROTHROMBIN TIME 10.9 sec (9.6-11.0)
[2022-03-30 07:16] LABS: CHLORIDE 109 mEq/L (98-107)
[2022-03-30 08:00] VITALS: BP 129/73
[2022-03-30] MEDS: ASCORBIC ACID 500 MG TABLET PO SCH (09:49)
[2022-03-30] MEDS: FOLIC ACID 1MG TABLET PO SCH (09:50)
[2022-03-30] MEDS: FERROUS SULFATE 325MG TABLET PO SCH ×2 (09:50→17:43)
[2022-03-30] MEDS: CYANOCOBALAMIN 1000MCG/ML VIAL IM SCH (09:50)
[2022-03-30] MEDS: MIDODRINE HCL 5MG TABLET PO SCH ×3 (09:50→17:43)
[2022-03-30] MEDS: PANTOPRAZOLE SODIUM 40 MG/VIAL IV SCH ×2 (09:50→17:43)
[2022-03-30] MEDS ORDERED: CYANOCOBALAMIN 1000MCG/ML VIAL IM SCH (10:45)
[2022-03-30] MEDS ORDERED: IOHEXOL-350 100 ML BOTTLE ONE (11:08)
[2022-03-30] MEDS ORDERED: BARIUM SULFATE(VOLUMEN) 450 ML ORAL.SUSP ONE (11:08)
[2022-03-30 12:00] VITALS: BP 139/82
[2022-03-30] MEDS ORDERED: POTASSIUM CHLORIDE 20MEQ/PACKET PO SCH (13:45)
[2022-03-30 16:00] VITALS: BP 134/79
[2022-03-30] MEDS: METOCLOPRAMIDE HCL 10MG/2ML VIAL IV PRN ×2 (18:39→22:47)
[2022-03-30] MEDS: BISACODYL 5MG TABLET PO PRN ×2 (18:40→22:47)
[2022-03-30] MEDS: SORBITOL 70% SOLN 30ML PO PRN ×2 (18:50→22:42)
[2022-03-30] MEDS: ONDANSETRON HCL 4MG/2ML INJ IV PRN (19:01)
[2022-03-30 20:00] VITALS: BP 105/52
[2022-03-31] VITALS: BP 93/57
[2022-03-31] MEDS: IPRATROPIUM BROMIDE (0.02%) 0.5MG/2.5ML NEB HHN SCH ×6 (00:03→20:00)
[2022-03-31] MEDS: ALBUTEROL (0.083%) 2.5MG/3ML NEB HHN SCH ×6 (00:03→20:00)
[2022-03-31] MEDS: METOCLOPRAMIDE HCL 10MG/2ML VIAL IV PRN (02:31)
[2022-03-31] MEDS: BISACODYL 5MG TABLET PO PRN (02:31)
[2022-03-31] MEDS: SORBITOL 70% SOLN 30ML PO PRN (02:31)
[2022-03-31 04:00] VITALS: BP 138/80
[2022-03-31] MEDS: SUCRALFATE 1 G/10 ML UDC PO SCH ×4 (06:16→20:47)
[2022-03-31 06:20] LABS: BASOPHILS % 0.6 % (0.0-2.0); EOSINOPHILS % 9.2 % (0.0-5.0); HEMATOCRIT. 28.3 % (42.0-52.0); HEMOGLOBIN. 8.9 g/dL (14.0-18.0); LYMPHOCYTES % 13.4 % (20.0-50.0); MEAN CORPUSCULAR HEMOGLOBIN 26.4 pg (28.0-32.0); MEAN CORPUSCULAR VOLUME 83.4 fL (80.0-94.0); MEAN PLATELET VOLUME 8.1 fl (7.4-10.4); MONOCYTES % 8.1 % (2.0-8.0); NEUTROPHILS % 68.7 % (40.0-76.0); PLATELET 349 x1000/uL (130-400); RED BLOOD CELL COUNT 3.39 mill/uL (4.7-6.1)
[2022-03-31 06:37] LABS: PROTHROMBIN TIME 10.9 sec (9.6-11.0)
[2022-03-31 06:50] LABS: CHLORIDE 109 mEq/L (98-107)
[2022-03-31 08:30] VITALS: BP 136/78
[2022-03-31] MEDS: FOLIC ACID 1MG TABLET PO SCH (09:00)
[2022-03-31] MEDS: FERROUS SULFATE 325MG TABLET PO SCH ×2 (09:00→17:49)
[2022-03-31] MEDS: ASCORBIC ACID 500 MG TABLET PO SCH (09:00)
[2022-03-31] MEDS: MIDODRINE HCL 5MG TABLET PO SCH ×3 (09:00→18:28)
[2022-03-31] MEDS: PANTOPRAZOLE SODIUM 40 MG/VIAL IV SCH ×2 (09:08→17:51)
[2022-03-31] MEDS: CYANOCOBALAMIN 1000MCG/ML VIAL IM SCH (09:08)
[2022-03-31] MEDS: SODIUM CHLORIDE 0.9% 1,000 ML IV SCH ×2 (09:08→18:34)
[2022-03-31] MEDS: HYDROCODONE/ACETAMINOPHEN 7.5/325MG TABLET PO PRN (09:42)
[2022-03-31 12:00] VITALS: BP 93/59
[2022-03-31 16:00] VITALS: BP 110/54
[2022-03-31] MEDS ORDERED: METOCLOPRAMIDE HCL 10MG/2ML VIAL IV NR (17:00)
[2022-03-31] MEDS ORDERED: POTASSIUM CHLORIDE 20MEQ/PACKET PO NR (17:00)
[2022-03-31] MEDS ORDERED: BISACODYL 5MG TABLET PO NR (17:00)
[2022-03-31] MEDS ORDERED: SORBITOL 70% SOLN 30ML PO NR (17:30)
[2022-03-31 20:00] VITALS: BP 113/75
[2022-03-31] MEDS ORDERED: POTASSIUM CHLORIDE 20MEQ/PACKET PO SCH (22:00)
[2022-04-01] VITALS: BP 140/78
[2022-04-01] MEDS ORDERED: DEXT 5%/0.45% NACL 500ML 500 ML IV ONE
[2022-04-01] MEDS: ACETAMINOPHEN 325MG TABLET PO PRN (01:16)
[2022-04-01 04:00] VITALS: BP 92/58
[2022-04-01 04:43] LABS: BASOPHILS % 0.3 % (0.0-2.0); EOSINOPHILS % 9.3 % (0.0-5.0); HEMATOCRIT. 30.1 % (42.0-52.0); HEMOGLOBIN. 9.3 g/dL (14.0-18.0); LYMPHOCYTES % 10.1 % (20.0-50.0); MEAN CORPUSCULAR VOLUME 84.1 fL (80.0-94.0); MEAN PLATELET VOLUME 7.9 fl (7.4-10.4); MONOCYTES % 10.1 % (2.0-8.0); NEUTROPHILS % 70.2 % (40.0-76.0); PLATELET 327 x1000/uL (130-400); RED BLOOD CELL COUNT 3.58 mill/uL (4.7-6.1); RED CELL DISTRIBUTION WIDTH 19.6 % (11.6-14.6)
[2022-04-01 04:49] LABS: CHLORIDE 106 mEq/L (98-107)
[2022-04-01] MEDS: ALBUTEROL (0.083%) 2.5MG/3ML NEB HHN SCH ×5 (04:59→17:10)
[2022-04-01] MEDS: IPRATROPIUM BROMIDE (0.02%) 0.5MG/2.5ML NEB HHN SCH ×6 (04:59→17:10)
[2022-04-01 05:40] LABS: INR 1.1; PROTHROMBIN TIME 11.4 sec (9.6-11.0)
[2022-04-01] MEDS: SUCRALFATE 1 G/10 ML UDC PO SCH ×4 (06:40→20:57)
[2022-04-01 08:00] VITALS: BP 127/75
[2022-04-01] MEDS: PANTOPRAZOLE SODIUM 40 MG/VIAL IV SCH ×2 (08:22→16:17)
[2022-04-01] MEDS: MIDODRINE HCL 5MG TABLET PO SCH ×3 (08:23→16:17)
[2022-04-01] MEDS: FERROUS SULFATE 325MG TABLET PO SCH ×2 (08:23→16:17)
[2022-04-01] MEDS: FOLIC ACID 1MG TABLET PO SCH (08:23)
[2022-04-01] MEDS: ASCORBIC ACID 500 MG TABLET PO SCH (08:26)
[2022-04-01 12:00] VITALS: BP 107/75
[2022-04-01] MEDS: METRONIDAZOLE 500 MG PREMIX 100 ML IV SCH ×3 (12:27→22:46)
[2022-04-01] MEDS: LEVOFLOXACIN 500MG PREMIX 100 ML IV SCH (12:27)
[2022-04-01] MEDS ORDERED: PROPOFOL 200MG/20ML VIAL IV ONE (13:44)
[2022-04-01] MEDS ORDERED: LIDOCAINE HCL 1% 10 MG/ML 10ML VIAL ONE (13:44)
[2022-04-01] MEDS ORDERED: MIDAZOLAM HCL 2 MG/2 ML VIAL ONE ×2 (13:45→14:10)
[2022-04-01] MEDS: SODIUM CHLORIDE 0.9% 1,000 ML IV SCH (14:00)
[2022-04-01] MEDS ORDERED: FENTANYL CITRATE/PF 50MCG/ML 2ML VIAL ONE (14:15)
[2022-04-01] MEDS ORDERED: ETOMIDATE 2MG/ML 10ML VIAL IV ONE (14:20)
[2022-04-01 16:00] VITALS: BP 84/55
[2022-04-01] MEDS ORDERED: SODIUM CHLORIDE 0.9% 500 ML IV ONE (16:54)
[2022-04-01] MEDS ORDERED: SODIUM CHLORIDE 0.9% 500 ML IV NR (17:00)
[2022-04-01 20:00] VITALS: BP 83/50
[2022-04-02] VITALS: BP 148/86
[2022-04-02] MEDS: ACETAMINOPHEN 325MG TABLET PO PRN (00:48)
[2022-04-02] MEDS: SODIUM CHLORIDE 0.9% 1,000 ML IV SCH ×2 (03:45→10:00)
[2022-04-02 04:00] VITALS: BP 95/57
[2022-04-02] MEDS: SUCRALFATE 1 G/10 ML UDC PO SCH ×3 (05:34→16:47)
[2022-04-02] MEDS: METRONIDAZOLE 500 MG PREMIX 100 ML IV SCH ×2 (05:34→13:59)
[2022-04-02 08:00] VITALS: BP 101/62
[2022-04-02] MEDS: FERROUS SULFATE 325MG TABLET PO SCH ×2 (08:42→16:47)
[2022-04-02] MEDS: ASCORBIC ACID 500 MG TABLET PO SCH (08:42)
[2022-04-02] MEDS: MIDODRINE HCL 5MG TABLET PO SCH ×3 (08:42→16:47)
[2022-04-02] MEDS: FOLIC ACID 1MG TABLET PO SCH (08:42)
[2022-04-02] MEDS: PANTOPRAZOLE SODIUM 40 MG/VIAL IV SCH ×2 (08:42→16:47)
[2022-04-02] MEDS ORDERED: METRONIDAZOLE 500 MG PREMIX 100 ML IV SCH (09:00)
[2022-04-02] MEDS ORDERED: MIDO5TAB4 PO (09:27)
[2022-04-02] MEDS ORDERED: PROT40 PO (09:27)
[2022-04-02] MEDS ORDERED: SULF1TAB48 MT (09:27)
[2022-04-02 10:58] LABS: CHLORIDE 108 mEq/L (98-107)
[2022-04-02] MEDS: LEVOFLOXACIN 500MG PREMIX 100 ML IV SCH (11:39)
[2022-04-02 12:00] VITALS: BP 133/81
[2022-04-02] MEDS: ALBUTEROL (0.083%) 2.5MG/3ML NEB HHN SCH (12:42)
[2022-04-02 16:00] VITALS: BP 112/70
[2022-04-02 17:46] LABS: BASOPHILS % 0.8 % (0.0-2.0); HEMOGLOBIN. 8.5 g/dL (14.0-18.0); LYMPHOCYTES % 11.2 % (20.0-50.0); MEAN CORPUSCULAR HEMOGLOBIN 26.2 pg (28.0-32.0); MEAN PLATELET VOLUME 8.3 fl (7.4-10.4); MONOCYTES % 9.4 % (2.0-8.0); NEUTROPHILS % 71.6 % (40.0-76.0); PLATELET 322 x1000/uL (130-400); RED BLOOD CELL COUNT 3.25 mill/uL (4.7-6.1); RED CELL DISTRIBUTION WIDTH 20.2 % (11.6-14.6)
[2022-04-02 18:52] VITALS: BP 112/70
== END 2022-04-02 19:12 | disposition home health service (06) | DRG 871 ==
LOC: ER 21:25 → MICUSO 03-20 03:12 → CVICU 03-20 20:25 → 5WST 03-23 18:09 → MICUNO 03-26 17:04 → 7EST 03-29 14:33
PROVIDERS: ADMIT Internal Medicine; ATTEND Internal Medicine
PROC: 06HN33Z Insertion of Infusion Device into Left Femoral Vein, Percutaneous Approach (ICD-10-PCS; principal; 2022-03-20)
PROC: B54CZZA Ultrasonography of Left Lower Extremity Veins, Guidance (ICD-10-PCS; 2022-03-20)
PROC: 02HV33Z Insertion of Infusion Device into Superior Vena Cava, Percutaneous Approach (ICD-10-PCS; 2022-03-25)
PROC: B548ZZA Ultrasonography of Superior Vena Cava, Guidance (ICD-10-PCS; 2022-03-25)
PROC: 30233N1 Transfusion of Nonautologous Red Blood Cells into Peripheral Vein, Percutaneous Approach (ICD-10-PCS; 2022-03-25)
PROC: 0DB78ZX Excision of Stomach, Pylorus, Via Natural or Artificial Opening Endoscopic, Diagnostic (ICD-10-PCS; 2022-03-31)
PROC: 0DB68ZX Excision of Stomach, Via Natural or Artificial Opening Endoscopic, Diagnostic (ICD-10-PCS; 2022-03-31)
PROC: 0DJD8ZZ Inspection of Lower Intestinal Tract, Via Natural or Artificial Opening Endoscopic (ICD-10-PCS; 2022-04-01)
DX: A41.9 Sepsis, unspecified organism (principal); J18.9 Pneumonia, unspecified organism; R57.1 Hypovolemic shock; J96.01 Acute respiratory failure with hypoxia; L89.154 Pressure ulcer of sacral region, stage 4; R65.21 Severe sepsis with septic shock; R57.8 Other shock; K20.91 Esophagitis, unspecified with bleeding; E44.0 Moderate protein-calorie malnutrition; G82.20 Paraplegia, unspecified; J44.1 Chronic obstructive pulmonary disease with (acute) exacerbation; I47.1 Supraventricular tachycardia; I42.9 Cardiomyopathy, unspecified; I27.20 Pulmonary hypertension, unspecified; I48.91 Unspecified atrial fibrillation; I10 Essential (primary) hypertension; D50.9 Iron deficiency anemia, unspecified; D75.839 Thrombocytosis, unspecified; K44.9 Diaphragmatic hernia without obstruction or gangrene; E83.42 Hypomagnesemia; E87.6 Hypokalemia; E03.8 Other specified hypothyroidism; Z20.822 Contact with and (suspected) exposure to COVID-19; E83.39 Other disorders of phosphorus metabolism; I07.1 Rheumatic tricuspid insufficiency; I35.1 Nonrheumatic aortic (valve) insufficiency; K29.30 Chronic superficial gastritis without bleeding; F19.10 Other psychoactive substance abuse, uncomplicated; R79.89 Other specified abnormal findings of blood chemistry; Y95 Nosocomial condition; Z87.01 Personal history of pneumonia (recurrent); Z93.3 Colostomy status; Z99.81 Dependence on supplemental oxygen; Z79.899 Other long term (current) drug therapy; Z90.49 Acquired absence of other specified parts of digestive tract; Z68.21 Body mass index [BMI] 21.0-21.9, adult; K27.9 Peptic ulcer, site unspecified, unspecified as acute or chronic, without hemorrhage or perforation
CPT/HCPCS: 36415; 36573; 36600; 71045; 71275; 74176; 74177; 76536; 76700; 80048; 80053; 80061; 80202; 80305; 81003; 82040; 82375; 82533; 82550; 82553; 82607; 82728; 82746; 82805; 83036; 83540; 83550; 83605; 83735; 83880; 84100; 84134; 84145; 84439; 84443; 84481; 84484; 85014; 85018; 85025; 85027; 85044; 85379; 86803; 86850; 86900; 86920; 86945; 87070; 87340; 87426; 88305; 93005; 93306; 94640; 94667; 97162; 97164; 97166; 99291; C1725; C9113; J1100; J1160; J1650; J1885; J1956; J2250; J2270; J2370; J2405; J2543; J2704; J2765; J2920; J2930; J3010; J3370; J3420; J3475; J3490; J7030; J7060; J7608; J7626; P9016; Q9967